=== PATIENT | male | born 1945 | race Caucasian/White ===

== ENCOUNTER 2018-01-18 10:18 | Emergency (ER) | payer MEDICARE ==
[2018-01-18 10:38] VITALS: BP 159/82
--- NOTE | 2018-01-18 11:06 | UC ---
Abdominal Pain Male HPI - HPI Summary HPI Summary: Onset of abdominal pain at 04:00 this morning, with dry heaves and increasing pain with radiation to the chest and back. Last stool yesterday was small, but no previous hx of constipation. Remote hx of appendectomy, umbilical hernia repair about 5 years ago. Last ate ziti last night, has not had food or fluids today. - History of Current Complaint Chief Complaint: UCAbdominalPain Stated Complaint: ABDOMINAL PAIN Time Seen by Provider: 01/18/18 10:55 Hx Obtained From: Patient Onset/Duration: Sudden Onset, Lasting Hours Timing: Constant Severity Initially: Moderate Severity Currently: Severe Pain Intensity: 10 Location: Diffuse Radiates: Yes Radiates to: Back Character: Colicy, Cramping Aggravating Factor(s): Movement Alleviating Factor(s): Position Associated Signs And Symptoms: Positive: Back Pain, Constipation - Risk Factors Testicular Torsion: Negative Cardiac Risk Factors: Hypertension - Allergies/Home Medications Allergies/Adverse Reactions: Allergies Allergy/AdvReac Type Severity Reaction Status Date / Time Penicillins Allergy Anaphylatic Verified 01/18/18 10:30 Shock Sulfa (Sulfonamide Allergy Anaphylatic Verified 01/18/18 10:30 Antibiotics) Shock Home Medications: Home Medications Atorvastatin* [Lipitor*] 20 mg PO WEEKLY 01/18/18 [History Confirmed 01/18/18] Doxazosin TAB* [Cardura TAB*] 4 mg PO BEDTIME 01/18/18 [History Confirmed ] Fluticasone/Vilanterol MDI(NF) [Breo Ellipta MDI 200/25(NF)] 1 puff INH DAILY [History Confirmed 01/18/18] Levothyroxine TAB* [Synthroid TAB*] 50 mcg PO DAILY 01/18/18 [History Confirmed 01/18/18] Magnesium Oxide [Magnesium] 250 mg PO DAILY 01/18/18 [History Confirmed 01/18/18 ] Umeclidin 62.5 MDI(NF) [Incruse ELLIPTA MDI (NF)] 1 inh INH DAILY PRN 01/18/18 [ History Confirmed 01/18/18] tiZANidine TAB* [Zanaflex TAB*] 2 mg PO Q8H 01/18/18 [History Confirmed 01/18/18 ] PMH/Surg Hx/FS Hx/Imm Hx Previously Healthy: No - hx of fatty liver, copd Endocrine History: Hypothyroidism Cardiovascular History: Hypertension Respiratory History: COPD GI/ History: Gastroesophageal Reflux, Gall Bladder Disease - hx of gallstones , no surgical treatment - Surgical History Surgical History: Yes Surgery Procedure, Year, and Place: Right Thumb Trigger Finger, 2014, [facility]; Umbilical Herniorrhaphy, 2012, [facility]; Right Rotator Cuff, 2002, [facility]; Right Knee Arthoscopy, 2002, [facility]; Left Orbit Fracture, ~1985, [place]; Appendectomy as a child - Family History Known Family History: Positive: Other Family History: Not obtained because of acuity--advised ER GERRI - Social History Occupation: Retired Lives: Alone - here alone, spends most of his time in [place] Alcohol Use: Rare Substance Use Type: None Smoking Status (MU): Former Smoker Type: Cigarettes Amount Used/How Often: 2 PPD Length of Time of Smoking/Using Tobacco: 43 Years Have You Smoked in the Last Year: No When Did the Patient Quit Smoking/Using Tobacco: 1999 - Immunization History Most Recent Influenza Vaccination: July 2015 Most Recent Pneumonia Vaccination: July 2015 Review of Systems Constitutional: Other - feels unwell Skin: Negative Eyes: Negative ENT: Negative Respiratory: Other - hx COPD, denies cough or worsening shortness of breath Cardiovascular: Negative Gastrointestinal: Abdominal Pain, Nausea Genitourinary: Negative Motor: Negative Neurovascular: Negative Musculoskeletal: Negative Neurological: Negative Psychological: Anxious Is Patient Immunocompromised?: No All Other Systems Reviewed And Are Negative: Yes Physical Exam Triage Information Reviewed: Yes Appearance: Ill-Appearing, Pain Distress - moderate to severe, restless. Vital Signs: Initial Vital Signs Temp 98.2 F 01/18/18 10:31 Pulse 80 01/18/18 10:31 Resp 20 01/18/18 10:31 BP 159/82 01/18/18 10:31 Pulse Ox 99 01/18/18 10:31 Eyes: Positive: Conjunctiva Clear ENT: Positive: Pharynx normal Neck: Positive: Supple, Nontender, No Lymphadenopathy Respiratory Exam: Other - mildly tachypneic Respiratory: Positive: Lungs clear Cardiovascular: Positive: RRR, No Murmur Abdomen Description: Positive: Distended. Negative: CVA Tenderness (R), CVA Tenderness (L) Bowel Sounds: Positive: Other: - few high pitched bowel sounds. Musculoskeletal Exam: Normal Neurological: Positive: Alert Skin Exam: Normal Abd Pain Male Course/Dx - Course Course Of Treatment: advised ER for evaluation and imaging--bowel obstruction most likely, ? aneurysm. - Differential Dx/Clinical Impression Differential Diagnosis/HQI/PQRI: Gall Bladder Disease Provider Diagnoses: acute abdominal pain; advised ER - Physician Notification/Consults Discussed Patient Care With: Federica Wilcox Time Discussed With Above Provider: 11:15 Discharge - Sign-Out/Discharge Documenting (check all that apply): Patient Departure Signing out patient TO: Federica Wilcox - refused ambulance transfer; signed out AMA due to refusal - Discharge Plan Condition: Guarded Disposition: TRANS HIGHER LVL OF CARE FAC Referrals: No Primary Care Phys,NOPCP [Primary Care Provider] - - Billing Disposition and Condition Condition: GUARDED Disposition: Trans Higher Lvl of Care Fac
== END 2018-01-18 11:12 | disposition short-term general hospital (02) ==
LOC: UCCORT 10:18
DX: R10.9 Unspecified abdominal pain (principal); I10 Essential (primary) hypertension; Z88.0 Allergy status to penicillin; E03.9 Hypothyroidism, unspecified; J44.9 Chronic obstructive pulmonary disease, unspecified; Z87.891 Personal history of nicotine dependence
CPT/HCPCS: 99212; G0463